=== PATIENT | female | born 1990 | race Hispanic/Latino ===

== ENCOUNTER 2016-12-29 12:14 | Inpatient (IN) | payer MEDICARE, MEDICAID ==
[~2016-12-29] VITALS: Ht 147.3 cm; Wt 55.6 kg
[~2016-12-29 12:14] MED LIST: CHOL200047 PO; HYDR-3090 PO; MYCO360T PO; PRD5T PO; PRETAB PO; TACR0.5C5 PO; TACR1CAP8 PO; Vancomycin Dose per Pharmacist XX ONE; [UNRECOGNIZED DRUG - CODE] PO
[2016-12-29 12:19] VITALS: BP 120/86; PULSE 109; RESP 20; O2SAT 98
[2016-12-29 14:52] LABS: BASOPHILS % (AUTO) 0 % (0-3); EOSINOPHILS % (AUTO) 0 % (0-5); Mean Corpuscular Hemoglobin 30.2 pg (27.0-35.0); Mean Corpuscular Volume 88.5 fL (81-100); NEUTROPHILS % (AUTO) 95.5 % (40-74); Platelet Count 191 bil/L (150-400)
--- NOTE | 2016-12-29 15:10 | ED.REPORT ---
HPI-General Illness Date of Service Dec 29, 2016 ED Provider: Pk Martinez DO Patient is a 26 year old female with a history of a kidney transplant who presents to the ED complaining of chills onset two days ago. Associated symptoms include diarrhea after the chills started, fever, diaphoresis, headache since yesterday, neck stiffness, decreased appetite and body aches. The patient reports that she has episodes of diarrhea after eating. She denies vomiting, abdominal pain, cough, hematochezia, mucousy stool or dysuria. Patient states that she has not missed any doses of her kidney medication. Nursing Notes Stated Complaint: CHILLS, SWEATING, HEADACHE, BODY HURTS Chief Complaint: General Complaint Nursing Notes Reviewed: Yes Allergies: Coded Allergies: No Known Allergies (Verified , 12/29/15) Scheduled Calcium Carbonate (Calcium Antacid) 320 Mg Tab.chew 500 MG PO BID Cholecalciferol (Vitamin D3) (Vitamin D3) 2,000 Unit Capsule 1,000 UNIT PO DAILY Mycophenolate DR (Myfortic) 360 Mg Tablet 360 MG PO BID Prednisone (PredniSONE) 5 Mg Tab 5 MG PO DAILY Tacrolimus (Tacrolimus) 1 Mg Capsule 1.5 MG PO QPM Tacrolimus (Tacrolimus) 1 Mg Capsule 2 MG PO DAILY Scheduled PRN Hydrocodone-Acetaminophen 5-300 mg (Hydrocodone-Acetaminophen 5-300 mg) 1 Each Tablet 1 TABLET PO Q4H PRN PRN For Pain Miscellaneous Medications Vits #90/Iron Fum/FA ( Formula Tablet) 1 Each Tablet 1 EACH PO General Time Seen by MD: 15:06 Chief Complaint Diarrhea Hx Obtained From: Patient Arrived By: Walk-in Sudden in Onset?: Yes Onset Occurred: 2 days ago Symptom Duration: Since onset Severity: Current: Moderate Associated with: Reports: Fever, Headache, Denies: Abdominal pain, Vomiting Recent Healthcare: No recent doctor visit, No recent hospitalization Similar Sx Previous: No Past Medical History Past Medical History 1. End-stage renal disease on hemodialysis until 2013, now in remission. 2. Hypertension resolved with kidney transplantation. 3. Secondary hyperparathyroidism status post surgical removal. 4. Anemia secondary to end-stage renal disease resolved with kidney transplantation. Past Surgical History 1. Left renal transplant 1995 and 2013. 2. Left AV fistula. 3. Parathyroidectomy. Family History Family history of diabetes mellitus. Smoking History Never Smoker Social History The patient is single, lives with her family, is currently working to become a full-time college student, and is not sexually active. She reports her menses are very irregular and unpredictable. Alcohol Use: Denies alcohol use Drug Use: Denies drug use Other Social History: Good social support, Lives with parents, Local resident, College student Ambulatory Status Independent Review of Systems Full Review of Systems Constitutional: Reports: Chills, Fever Respiratory: Denies: Non-productive cough GI: Reports: Diarrhea, Denies: Abdominal pain, Hematochezia, Mucousy stool, Vomiting Female: Denies: Dysuria Musculoskeletal: Reports: Myalgia, Neck pain Skin: Reports Diaphoresis Neurologic: Reports: Headache Complete sys rev & neg: except as marked. Physical Exam Vital Signs Vital Signs Date Time Temp Pulse Resp B/P Pulse Ox O2 Delivery O2 Flow Rate FiO2 12/29/16 15:59 39.2 119 22 128/70 99 Room Air 12/29/16 12:19 37.8 109 20 120/86 98 Room Air Initial VS: Reviewed General/Constitutional: Awake, Alert Distress / Hydration: Positive: Distress moderate warm to touch Head / Eyes: Atraumatic, Normocephalic, PERRL, EOMI Neck: Atraumatic, Supple, No meningismus, Full range of motion Respiratory / Chest: Atraumatic, Breath sounds NL, Breath sounds = bilat, No respiratory distress Cardiovascular: Regular rhythm, Heart sounds NL Heart Rate / Rhythm: Positive: Tachycardia Abdomen: Atraumatic, Soft Tenderness/Guarding/Rebound: Positive: Tender LLQ... (with guarding) Lower Extremity / Pelvis / MS: Atraumatic, Full range of motion, No edema Skin: Atraumatic, Color NL, No rash, Warm, Dry Neurologic: Oriented X3, Speech NL, No motor deficits, No sensory deficits Psychiatric: Affect NL, Mood NL Interpretation & Diagnostics Lab Results Interpretation Result Diagram: 12/29/16 1440 12/29/16 1440 Test 12/29/16 14:40 12/29/16 16:30 12/29/16 16:43 White Blood Count 18.1th/mm3 (3.8-10.1) Red Blood Count 4.96mil/mm3 (3.90-5.20) Hemoglobin 15.0g/dL (12.0-15.6) Hematocrit 43.9% (35.0-46.0) Mean Corpuscular Volume 88.5fL (81-100) Mean Corpuscular Hemoglobin 30.2pg (27.0-35.0) Mean Corpuscular Hemoglobin Concent 34.2% (32.0-37.0) Red Cell Distribution Width 13.6% (12.3-15.4) Platelet Count 191bil/L (150-400) Neutrophils (%) (Auto) 95.5% (40-74) Lymphocytes (%) (Auto) 2.2% (14-46) Monocytes (%) (Auto) 2.0% (4-12) Eosinophils (%) (Auto) 0% (0-5) Basophils (%) (Auto) 0% (0-3) Sodium Level 135mEq/L (134-144) Potassium Level 4.1mEq/L (3.5-5.2) Chloride Level 97mEq/L (97-108) Carbon Dioxide Level 18mmol/L (18-29) Blood Urea Nitrogen 21mg/dL (6-20) Creatinine 1.44mg/dL (0.57-1.00) Estimat Glomerular Filtration Rate 62mL/min (>59) Glucose Level 166mg/dL (60-99) Lactic Acid Level 1.9mmol/L (0.4-2.0) Calcium Level 9.1mg/dL (8.5-10.1) Magnesium Level 1.4mg/dL (1.6-2.6) Total Bilirubin 0.7mg/dL (0.0-1.2) Aspartate Amino Transf (AST/SGOT) 28U/L (0-50) Alanine Aminotransferase (ALT/SGPT) 43U/L (0-32) Alkaline Phosphatase 63U/L (25-150) Troponin T < 0.010ug/L (0.0-0.011) Total Protein 7.9g/dL (6.4-8.4) Albumin 4.7g/dL (3.4-5.0) Lipase 18U/L (13-60) Procalcitonin 1.91ng/mL (0.00-0.08) Hold Urine Received (Received) Urine Color Yellow (YELLOW) Urine Appearance Cloudy (CLEAR,HAZY) Urine pH 5.0 (5.0-8.0) Urine Specific [place] 1.025 (1.003-1.035) Urine Protein 100mg/dL (NEG,TRACE) Urine Glucose (UA) Negativemg/dL (NEGATIVE) Urine Ketones 15mg/dL (NEGATIVE) Urine Occult Blood Moderate (NEGATIVE) Urine Nitrite Positive (NEGATIVE) Urine Bilirubin Negative (NEGATIVE) Urine Urobilinogen Normalmg/dL (NORMAL) Urine Leukocyte Esterase Trace (NEGATIVE) Urine RBC 3-10/hpf (0-2) Urine WBC 6-10/hpf (0-5) Urine Epithelial Cells Moderate/hpf (NONE-MOD) Urine Crystals None seen (NONE SEEN) Urine Bacteria Many/hpf (NONE-FEW) Urine Hyaline Casts None/lpf (NONE) Urine Granular Casts None seen (NONE SEEN) Urine Waxy Casts None seen (NONE SEEN) Urine Red Blood Cell Casts None seen (NONE SEEN) Urine White Blood Cell Casts None seen (NONE SEEN) Urine Mucus None seen (None Seen) Urine Trichomonas None seen (NONE SEEN) Urine Yeast None (NONE SEEN) Urinalysis Comment None Urine Culture Reflexed Indicated ECG Interpretation ECG Interpretation: sinus tachycardia, rate 116 probably left atrial enlargement left ventricular hypertrophy Time: 15:45 Interpreted by: ED physician X-Ray Chest Interpretation Chest Xray Interpretation: IMPRESSION: No radiographic explanation for fevers. Dictated by: Paddy Yanes M.D. on 12/29/2016 at 16:34 Approved by: Paddy Yanes M.D. on 12/29/2016 at 16:34 View: Portable, 1 view Interpretation / Wet Read by: Interpret - Radiologist CT Head Interpretation IMPRESSION: No acute intracranial abnormalities. Dictated by: Paddy Yanes M.D. on 12/29/2016 at 17:25 Approved by: Paddy Yanes M.D. on 12/29/2016 at 17:27 Interpretation / Wet Read by: Interpret - Radiologist CT Abd / Pelvis Interpretation PELVIS: Genitourinary: Bladder wall thickness is normal. Uterus and ovaries are normal in size. Miscellaneous: No inguinal hernias or adenopathy. Bones: No suspicious bony lesions. No vertebral body compression fractures. IMPRESSION: Status post repeat left iliac fossa renal transplant, with mild perinephric inflammatory fat stranding possibly reflecting pyelonephritis. No hydronephrosis. Dictated by: Paddy Yanes M.D. on 12/29/2016 at 17:27 Approved by: Paddy Yanes M.D. on 12/29/2016 at 17:33 Interpretation / Wet Read by: Interpret - Radiologist Re-Eval/Medical Decision Med Decision/Clinical Course Sepsis likely due to pyelonephritis versus transplant rejection, versus other etiology. Broad-spectrum antibiotics initiated due to immunocompromise. Does complain of headache, this is not consistent with subarachnoid hemorrhage or meningitis however a head CT was performed while waiting for further results. Seems that her kidney is the source. Patient be admitted. Nephrology consulted. Source of Hx: Old records Time of Eval: 15:58 Re-Evaluation/Progress Note: Patient reports that her headache comes and goes. It is not the worst headache ever. Time of Eval: 17:35 Re-Evaluation/Progress Note: Discussed results and plan for admit. The patient understands and agrees to the plan for admit. All questions were addressed. Consultation #1: Referral / Consult Name: Barb Amanda MD Consulted With: Nephrology Call Returned at: 17:16 Note: Dr. Alberto, nephrology, recommends renal US Consultation #2: Referral / Consult Name: Johny Logan MD Call Returned at: 17:32 Machine Compositor: Agrees with eval, Agrees with plan, Accepts admit Counseled Regarding: Diagnosis, Lab results, Need for admission Discharge & Departure Primary Impression: Sepsis Sepsis type: sepsis due to unspecified organism Qualified Code: A41.9 - Sepsis, unspecified organism Additional Impressions: Diarrhea Diarrhea type: unspecified type Qualified Code: R19.7 - Diarrhea, unspecified Abdominal pain Abdominal location: lower abdomen, unspecified Qualified Code: R10.30 - Lower abdominal pain, unspecified Pyelonephritis Disposition: ADMITTED TO HOSPITAL Discharge Condition All VS Reviewed: Yes Condition: Stable Referrals: Delano Machuca MD (PCP) Crit Care Except Billable Proc Time Spent: 30-74 minutes Services Performed: Patient management by me, Time spent at bedside, Reviewing test results Critical Care Notes: See MDM Scribe Attestation Portions of this note were transcribed by Chantal Huffman. I, Dr. Gia Becker personally performed the history, physical exam and medical decision-making; I reviewed and confirmed the accuracy of the information in the transcribed note. Signed by: Cyndie Bentley, 12/29/16 and [phone] copies to: Delano Machuca MD, Timothy S DO Dec 29, 2016 15:09 Dolly Huffman Dec 29, 2016 15:24
[2016-12-29 15:13] LABS: Magnesium 1.4 mg/dL (1.6-2.6)
[2016-12-29] MEDS ORDERED: 0.9% Sodium Chloride 1,000 ML IV ONE (15:34)
[2016-12-29] MEDS: 0.9% Sodium Chloride 1,000 ML IV SCH ×2 (15:35→21:54)
[2016-12-29] MEDS ORDERED: 0.9% Sodium Chloride 500 ML IV ONE (15:35)
[2016-12-29 15:59] VITALS: BP 128/70; PULSE 119; RESP 22; O2SAT 99
[2016-12-29 16:14] LABS: TROPONIN T < 0.010 ug/L (0.0-0.011)
[2016-12-29] MEDS ORDERED: Magnesium Sulf 2 Gm/50mL Water 2 GM in IV Premix 1 EACH IV ONE (16:15)
[2016-12-29] MEDS ORDERED: Cefepime Inj 2 GM in IV Premix 1 EACH IV ONE (16:30)
--- NOTE | 2016-12-29 16:36 | DRSVH ---
PROCEDURE: X-RAY CHEST ONE VIEW, PORTABLE ([id number]) INDICATIONS: 26-year-old immunocompromised female with fevers. TECHNIQUE: One view of the chest was acquired. COMPARISON: [facility], , CHEST 1VW (PORTABLE), 10/27/2013, 4:18. [facility], CR, CHEST 2VW, 07/17/2012, 21:20. [facility], , CHEST 2VW, 11/08/2011, 3:45. FINDINGS: Surgical changes and devices: None. Lungs and pleura: No pleural effusions or pneumothorax. Lungs are clear. Mediastinum: Mediastinal contours appear normal. Heart size is normal. Bones and chest wall: No suspicious bony lesions. Overlying soft tissues appear unremarkable. IMPRESSION: No radiographic explanation for fevers. Dictated by: Paddy Yanes M.D. on 12/29/2016 at 16:34 Approved by: Paddy Yanes M.D. on 12/29/2016 at 16:34
[2016-12-29] MEDS ORDERED: MYCO360T PO (17:00)
[2016-12-29 17:02] LABS: COLOR,URINE YELLOW (YELLOW)
[2016-12-29 17:03] LABS: APPEARANCE,URINE CLOUDY (CLEAR,HAZY); OCCULT BLOOD,URINE MODERATE (NEGATIVE); UROBILINOGEN,URINE NORMAL (NORMAL)
[2016-12-29] MEDS ORDERED: TACR1CAP8 PO ×2 (17:04)
[2016-12-29] MEDS ORDERED: PREN-100 PO (17:05)
[2016-12-29] MEDS ORDERED: Vancomycin Inj 1,000 MG in IV Premix 1 EACH IV ONE (17:15)
--- NOTE | 2016-12-29 17:28 | DRSVH ---
PROCEDURE: CT BRAIN WITHOUT CONTRAST ([id number]) INDICATIONS: 26-year-old immunocompromised female with headaches. TECHNIQUE: Noncontrast 4.5 mm thick angled axial sections acquired from the foramen magnum to the vertex, with c oronal reformats. COMPARISON: [facility], CT, BRAIN W/O CONTRAST, 11/09/2011, 8:54. FINDINGS: Image quality: Excellent. CSF spaces: Basal cisterns are patent. No extra-axial fluid collections. Ventricles are normal in size and shape. Brain: No midline shift. No intracranial masses or hemorrhage. Agustin-white matter interface is norm al. Skull and face: Calvarium and visualized facial bones are intact, without suspicious lesions. Sinuses: Visualized sinuses and mastoids are clear. IMPRESSION: No acute intracranial abnormalities. Dictated by: Paddy Yanes M.D. on 12/29/2016 at 17:25 Approved by: Paddy Yanes M.D. on 12/29/2016 at 17:27
[2016-12-29] MEDS ORDERED: Ondansetron 2 mg/mL 2 mL Inj IVPUSH PRN (17:35)
[2016-12-29] MEDS ORDERED: Alum-Mag Hydrox-Simeth 30 mL Suspension PO PRN (17:35)
--- NOTE | 2016-12-29 17:35 | DRSVH ---
PROCEDURE: CT ABDOMEN AND PELVIS WITHOUT CONTRAST ([id number]) INDICATIONS: 26-year-old immunocompromised female with left lower quadrant abdominal pain. TECHNIQUE: Noncontrast 5 mm thick sections acquired from the diaphragms to the symphysis. 5 mm coronal and sagi ttal reformats were then performed. For radiation dose reduction, the following was used: automated exposure control, adjustment of mA and/or kV according to patient size. COMPARISON: [facility], CT, KUB - CT ([facility]), 05/26/2011, 1:37. FINDINGS: Image quality: Excellent. ABDOMEN: Lung bases: Lung bases are clear. Heart size is normal. Solid organs: Liver and spleen are normal in size. Gallbladder wall thickness is normal. Pancreas is normal in contours. No adrenal nodules. Atrophic [place] kidneys are again noted. Patient is statu s post interval repeat renal transplant, with normal overall size and morphology to the left iliac fo ssa transplanted kidney. There is mild perinephric inflammatory fat stranding. Previously noted right iliac fossa renal transplant has decreased in size, with extensive internal dystrophic calcification s. Peritoneum and bowel: Unenhanced bowel loops demonstrate normal wall thickness and caliber. The tyesha endix is normal in caliber. No free fluid or air. Nodes and vessels: No retroperitoneal or mesenteric adenopathy by size criteria. Aorta and inferior vena cava are normal in caliber. Miscellaneous: No ventral hernias. PELVIS: Genitourinary: Bladder wall thickness is normal. Uterus and ovaries are normal in size. Miscellaneous: No inguinal hernias or adenopathy. Bones: No suspicious bony lesions. No vertebral body compression fractures. IMPRESSION: Status post repeat left iliac fossa renal transplant, with mild perinephric inflammatory fat stranding possibly reflecting pyelonephritis. No hydronephrosis. Dictated by: Paddy Yanes M.D. on 12/29/2016 at 17:27 Approved by: Paddy Yanes M.D. on 12/29/2016 at 17:33
[2016-12-29] MEDS ORDERED: HYDROCODONE ACETAMINOPHEN PO PRN (17:40)
--- NOTE | 2016-12-29 17:55 | DRSVH ---
PROCEDURE: US RENAL TRANSPLANT EVALUATION INDICATIONS: 26 year-old renal transplant patient with sepsis. TECHNIQUE: Real time scanning was performed of the transplant kidney, followed by color and pulsed D oppler interrogation of the renal vessels. COMPARISON: [facility], , RENAL TRANSPLANT EVAL, 04/20/2016, 22:24. FINDINGS: Agustin-scale imaging: Kidney is 10.6 cm long; renal cortical thickness is 1.5 cm. No hydronephrosis. Renal cortex is normal in echogenicity. No perinephric fluid collections. Bladder: Pre-void bladder volume is 277 mL; left ureteral jet is noted. IMPRESSION: Left iliac fossa transplanted kidney demonstrates no hydronephrosis or perinephric fluid collections. Dictated by: Paddy Yanes M.D. on 12/29/2016 at 17:50 Approved by: Paddy Yanes M.D. on 12/29/2016 at 17:54
--- NOTE | 2016-12-29 18:22 | NUR ---
Admit [facility] Pt arrived at 182 accompanied by mom with all belongings, telemetry to be put on, SL but IV fluids and ABX to be hung, on RA, is A&Ox3, and is SBA to BR. Pt has ordered dinner. Care continues
[2016-12-29] MEDS: D5 0.45% NaCl + KCl 20 mEq/L 1,000 ML IV SCH (18:28)
[2016-12-29 18:41] VITALS: PULSE 95
--- NOTE | 2016-12-29 18:42 | PCM.CONPHA ---
Assessment/Plan Assessment/Plan Pharmacy Kinetic Dosing Vancomycin Indication: SEPSIS Vanc goal trough: 15-20 mcg/mL Pt wt: 53.6 kg Other ABX: CEFEPIME Cultures: Blood PENDING SCr: 1.44 mg/dL Assessment/Plan: - Loading dose of Vancomycin 1000 mg given in ED for (20 mg/kg dosing) -Will continue Vancomycin 1000 mg Q24H due to patients renal function with trough scheduled prior to 4th dose on December @1800 Pharmacy appreciates consult and will continue to monitor. Steph Polo PharmD Dec 29, 2016 18:42
[2016-12-29 19:23] VITALS: BP 105/72; PULSE 100; RESP 16; O2SAT 100
[2016-12-29] MEDS: HYDROcodone-APAP 5-325 mg Tablet PO PRN (19:52)
--- NOTE | 2016-12-29 19:53 | PCM.HPMED ---
Subjective Date of Service Dec 29, 2016 Primary Provider: Admitting Physician: Johny Logan MD Primary Care Physician: Delano Machuca MD Attending Physician: Johny Logan MD Chief Complaint: CHILLS, SWEATING, HEADACHE, BODY HURTS Review of Systems: Gen.: No weight loss weight gain fevers and chills for the last 24-36 hours Eyes: no visual disturbances or blurring vision HEENT: No nose/throat drainage, no pain in ears or throat, no hearing loss Lymph: No lymph nodes noted Cardiac: No chest pain, orthopnea, PND, palpitations , pedal edema or dyspnea on exertion Pulmonary: no cough, wheezing or bringing up of sputum GI: No vomiting blood or black in the stool. ++ Nausea, decreased appetite, diarrhea : no dysuria hematuria urinary frequency or decrease in urine output Musculoskeletal: Joint swelling no joint pain no new muscle aches or back pain Neuro: No syncope, seizures no loss of consciousness no new focal weakness, numbness or tingling Psychiatric: New new anxiety insomnia or depression Endocrine: No new heat or cold intolerances polyuria or polydipsia Hematology: No lymphadenopathy or easy bleeding or bruising noted skin: No new rashes, stasis dermatitis Allergies Coded Allergies: No Known Allergies (Verified , 12/29/15) Home Medications Calcium Carbonate (Calcium Antacid) 320 Mg Tab.chew 500 MG PO BID Cholecalciferol (Vitamin D3) (Vitamin D3) 2,000 Unit Capsule 1,000 UNIT PO DAILY Mycophenolate DR (Myfortic) 360 Mg Tablet 360 MG PO BID Prednisone (PredniSONE) 5 Mg Tab 5 MG PO DAILY Tacrolimus (Tacrolimus) 1 Mg Capsule 1.5 MG PO QPM Tacrolimus (Tacrolimus) 1 Mg Capsule 2 MG PO DAILY Scheduled PRN Hydrocodone-Acetaminophen 5-300 mg (Hydrocodone-Acetaminophen 5-300 mg) 1 Each Tablet 1 TABLET PO Q4H PRN PRN For Pain Miscellaneous Medications Vits #90/Iron Fum/FA ( Formula Tablet) 1 Each Tablet 1 EACH PO PMH Past Medical History 1. End-stage renal disease on hemodialysis until 2013, now in remission. 2. Hypertension resolved with kidney transplantation. 3. Secondary hyperparathyroidism status post surgical removal. 4. Anemia secondary to end-stage renal disease resolved with kidney transplantation. Past Surgical History 1. Left renal transplant 1995 and 2013. 2. Left AV fistula. 3. Parathyroidectomy. Family History Family history of diabetes mellitus. Smoking History Never Smoker Social History The patient is single, lives with her family, is currently working to become a full-time college student, and is not sexually active. She reports her menses are very irregular and unpredictable. Alcohol Use: Denies alcohol use Drug Use: Denies drug use Other Social History: Good social support, Lives with parents, Local resident, College student Ambulatory Status Independent Social History Hx Alcohol Use: No Hx Substance Use: No Hx Tobacco Use: No Smoking Status: Never Smoker Exam Vital Signs Vital Sign - Last Date Time Temp Pulse Resp B/P Pulse Ox O2 Delivery O2 Flow Rate FiO2 12/29/16 19:23 36.9 100 16 105/72 100 Room Air Exam Gen.- A+ O 3 no apparent distress. Bundle block under blankets Eyes- open conjunctiva clear, pupils equal nonicteric Mouth- oral mucosa moist, no exudate ENT- ears normal, nose normal Neck- trach midline, neck is a little stiff CVS- RRR no murmur or gallop Lungs CTA GI- NABS/NT soft Musc- moving 4 no obvious deformity Neuro- cranial nerves II through XII intact to gross examination, nonfocal Skin- warm and dry, no rashes/lesions/wounds noted Psych- pleasant and appropriate, Lab and Diagnostics Result Diagram: 12/29/16 1440 12/29/16 1440 Assessment & Plan 26-year-old female on second renal transplant, immunosuppressed presents 12/29 with fevers and chills and diarrhea with decreased appetite. #Fevers/chills- symptomatic treatment with Tylenol, no source -Treating with broad-spectrum antibiotics cefepime/vancomycin given immunosuppressed state #Stiff neck- slight concern for meningitis, however global appearance does not suggest this. -If ongoing concern for aseptic meningitis may be we will send viral PCR #Diarrhea-not pursuing stool PCR at this time. #Dehydration-normal saline under 50 ML's per hour follow-up labs in a.m. #Immunosuppressed s/p kidney transplant -Continue mycophenolate, tacrolimus, prednisone -Dr. Alberto nephrology to consult in a.m. -Imaging including ultrasound thus far reassuring only minor concern for rejection is some protein in the urine deferred to nephrology as far as management goes #Prophylaxis- DVT with SCDs, enoxaparin, GI not indicated #Disposition- full code from ringold Johny Logan MD Dec 29, 2016 19:53
[2016-12-29] MEDS: [UNRECOGNIZED DRUG - OTHER] PO SCH (20:36)
[2016-12-29] MEDS: MYCOPHENOLATE SODIUM PO SCH (20:36)
[2016-12-29 21:50] VITALS: BP 113/65; PULSE 106; RESP 18; O2SAT 97
[2016-12-29] MEDS: Polyethylene Glycol (PEG) 17 Gm Powder PO PRN (21:54)
--- NOTE | 2016-12-29 23:51 | NUR ---
Home medications in pharmacy Patient had three bottles of medications brought to pharmacy for safe keeping, and one to be used while in hospital. Patient cooperative with protocol.
[2016-12-30 01:06] VITALS: BP 93/53; PULSE 104; RESP 18; O2SAT 97
[2016-12-30] MEDS: HYDROcodone-APAP 5-325 mg Tablet PO PRN ×4 (01:23→20:13)
[2016-12-30] MEDS: D5 0.45% NaCl + KCl 20 mEq/L 1,000 ML IV SCH (04:29)
[2016-12-30] MEDS: 0.9% Sodium Chloride 1,000 ML IV SCH ×3 (04:30→18:00)
--- NOTE | 2016-12-30 04:45 | NUR ---
NOC shift note Patient has slept intermittently, able to make needs known. Has had more complaints through the night of feeling congested and having sore throat, runny nose. Pain medication given, offered ice or warm liquids for throat. Mclean effective for headache. Temperatures have been 37.6 and 37.7. Antibiotics infusing as ordered. Patient is using call light appropriately for needs, intentional rounding in place.
[2016-12-30 04:57] VITALS: PULSE 97
[2016-12-30] MEDS: Cefepime Inj 1,000 MG in Dextrose 5% Minibag Plus 50 ML IV SCH ×2 (05:42→17:34)
[2016-12-30 06:05] LABS: BASOPHILS % (AUTO) 0.1 % (0-3); EOSINOPHILS % (AUTO) 0.3 % (0-5); Mean Corpuscular Hemoglobin 30.1 pg (27.0-35.0); Mean Corpuscular Volume 89.8 fL (81-100); NEUTROPHILS % (AUTO) 83.2 % (40-74); Platelet Count 147 bil/L (150-400)
[2016-12-30 06:11] VITALS: BP 106/71; PULSE 102; RESP 18; O2SAT 99
[2016-12-30 08:00] VITALS: PULSE 107
[2016-12-30] MEDS: predniSONE 5 mg Tablet PO SCH (08:10)
[2016-12-30] MEDS: MYCOPHENOLATE SODIUM PO SCH ×2 (08:10→20:04)
[2016-12-30] MEDS: [UNRECOGNIZED DRUG - OTHER] PO SCH ×2 (08:10→20:04)
[2016-12-30] MEDS ORDERED: Vancomycin Dose per Pharmacist XX SCH (08:30)
[2016-12-30] MEDS ORDERED: Famotidine Inj 20 MG in IV Premix 1 EACH IV SCH (08:30)
[2016-12-30] MEDS: Polyethylene Glycol (PEG) 17 Gm Powder PO PRN (10:00)
[2016-12-30 12:45] VITALS: BP 109/65; PULSE 102; RESP 20; O2SAT 95
[2016-12-30] MEDS ORDERED: Benzocaine-Menthol Lozenge 2/Pkg PO PRN (12:50)
--- NOTE | 2016-12-30 12:53 | PCM.PNMED ---
Subjective Date of Service Dec 30, 2016 Subjective Still having headache, sinus congestion. No chest pain, no dyspnea, no nausea vomiting, no more diarrhea reported. Exam Vital Signs Vital Sign - Last Date Time Temp Pulse Resp B/P Pulse Ox O2 Delivery O2 Flow Rate FiO2 12/30/16 12:45 37.5 102 20 109/65 95 Room Air Intake and Output 12/29/16 12/29/16 12/30/16 Cumulative From/Thru 15:00 23:00 07:00 12/29/16 12:19 - 12/30/16 05:42 Intake Total 1500 ml 1140 ml 2640 ml Output Total 425 ml 425 ml Balance 1075 ml 1140 ml 2215 ml Intake Oral 0 ml 0 ml IV Total 1500 ml 1140 ml 2640 ml Output Urine Total 425 ml 425 ml # Bowel Movements 0 0 Exam Gen.- A+ O 3 no apparent distress. Bundle block under blankets Eyes- open conjunctiva clear, pupils equal nonicteric ENT- ears normal, nose normal Neck- trach midline, neck is a little stiff CVS-normal rate Lungs no accessory muscle usage nonlabored GI-flat Musc- moving 4 no obvious deformity Neuro- cranial nerves II through XII intact to gross examination, nonfocal Skin- warm and dry, no rashes/lesions/wounds noted Psych- pleasant and appropriate, Lab and Diagnostics Result Diagram: 12/30/16 0540 12/30/16 0540 Assessment & Plan 26-year-old female on second renal transplant, immunosuppressed presents 12/29 with fevers and chills and diarrhea with decreased appetite. 12/30 vancomycin discontinued, renal function better but will continue to hydrate, continuing cefepime until cultures and sensitivities back on Escherichia coli that is growing in urine. #Fevers/chills- symptomatic treatment with Tylenol, no source -Treating with broad-spectrum antibiotics cefepime/vancomycin given immunosuppressed state. MRSA negative, UA positive culture despite dirty catch treating with cefepime until C&S is back 12/30 #Stiff neck- slight concern for meningitis, however global appearance does not suggest this. Improved 12/30. -If ongoing concern for aseptic meningitis may be we will send viral PCR #Diarrhea-not pursuing stool PCR at this time. No more 12/30 #Dehydration-normal saline 150 ML's per hour follow-up labs in a.m.. Continue IV feet F6/2 #Immunosuppressed s/p kidney transplant -Continue mycophenolate, tacrolimus, prednisone -Dr. Alberto nephrology to consult in a.m. -Imaging including ultrasound thus far reassuring only minor concern for rejection is some protein in the urine deferred to nephrology as far as management goes #Prophylaxis- DVT with SCDs, enoxaparin, GI not indicated #Disposition- full code from home Johny Logan MD Dec 30, 2016 12:53
--- NOTE | 2016-12-30 14:05 | PCM.CHPMED ---
Subjective Date of Service: Dec 30, 2016 Primary Physician: Admitting Physician: Johny Logan MD Primary Care Physician: Delano Machuca MD Attending Physician: Johny Logan MD Chief Complaint: Chief Complaint: Nephrology Service [facility] PGY2 and attending Dr. Alberto Reason for consult: Acute renal injury in renal transplant patient History of Present Illness: Patient is a 26yof with MHx significant for solitary kidney on immunosuppressive medication who initially presented with fevers and chills, admitted yesterday night for sepsis, pyelonephritis, and RACHANA. Nephrology service consulted for management of acute kidney injury. Per patient, sx of malaise, aches, and diarrhea started 2days ago. Fever began yesterday along with a sore throat. No dysuria, back pain, or suprapubic discomfort. She does admits to shaking chills and came into the ED for further assessment. Patient was tachycardic, feverish, leukocytosis on evaluation. UA positive for WBC, bacteria, nitrite consistent with UTI. CT scan showed "mild perinephric inflammatory fat stranding" suggestive of pyelonephritis. Creatinine 1.44. She was thus given boluses fluids and empiric abx cefepime and vancomycin. Today, patient still feverish and continues to have mild b/l frontal headaches, however feels significantly better. Patient state taking mycophenolate DR, tacrolimus, and prednisone 5mg daily. She has a renal transplant at 5yrs 2nd to "severe renal infection" that eventually failed, placed on hemodialysis for a period before receiving another transplant in 2013. Review of Systems: Review of Systems: A comprehensive review of systems was conducted with the patient and found to be negative except as above in the History of Present Illness. PMH Past Medical History Solitary kidney Hx ESRD s/p transplants Surgical History Left renal transplant 1995 and 2013. Left AV fistula. Parathyroidectomy. Home Medications Calcium Carbonate (Calcium Antacid) 320 Mg Tab.chew 500 MG PO BID Cholecalciferol (Vitamin D3) (Vitamin D3) 2,000 Unit Capsule 1,000 UNIT PO DAILY Mycophenolate DR (Myfortic) 360 Mg Tablet 360 MG PO BID Prednisone (PredniSONE) 5 Mg Tab 5 MG PO DAILY Tacrolimus (Tacrolimus) 1 Mg Capsule 1.5 MG PO QPM Tacrolimus (Tacrolimus) 1 Mg Capsule 2 MG PO DAILY Allergies: Coded Allergies: No Known Allergies (Verified , 5/31/16) Family History Family History Family history of diabetes mellitus. 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 Hx Alcohol Use: NoHx Substance Use: NoHx Tobacco Use: No Smoking Status: Never Smoker Exam Vital Signs Vital Sign - Last Date Time Temp Pulse Resp B/P Pulse Ox O2 Delivery O2 Flow Rate FiO2 12/30/16 12:45 37.5 102 20 109/65 95 Room Air Intake and Output 12/29/16 12/29/16 12/30/16 Cumulative From/Thru 15:00 23:00 07:00 12/29/16 12:19 - 12/30/16 05:42 Intake Total 1500 ml 1140 ml 2640 ml Output Total 425 ml 425 ml Balance 1075 ml 1140 ml 2215 ml Intake Oral 0 ml 0 ml IV Total 1500 ml 1140 ml 2640 ml Output Urine Total 425 ml 425 ml # Bowel Movements 0 0 General: Alert, Oriented X3, Cooperative, No Acute Distress Head: Normal Eyes: PERRLA, EOMI, Scleral Anicteric Mouth: Mucous Membr Moist/[place] Neck: Supple Chest & Lungs: Clear to auscultation & percussion, Auscultation, Percussion, No adventitious breath sounds Cardiovascular: Exam Unremarkable, Regular Rate/Rhythm, Normal S1, Normal S2, No Murmurs/Rubs/Gallops Abdomen: Non-tender, Non-distended, Other (no rebound tenderness) Genitourinary: Normal, [place] Absent, Other (no costophrenic angle tenderness or suprapubic pain) Extremities: No cyanosis/clubbing/edma bilat Neurological: Grossly Neurologically Intact, Cranial Nerves 2-12 Intact, Normal Speech Lab and Diagnostics Result Diagram: 12/30/16 0540 12/30/16 0540 X-Rays, CTs and MRIs PROCEDURE: CT ABDOMEN AND PELVIS WITHOUT CONTRAST INDICATIONS: 26-year-old immunocompromised female with left lower quadrant abdominal pain. IMPRESSION: Status post repeat left iliac fossa renal transplant, with mild perinephric inflammatory fat stranding possibly reflecting pyelonephritis. No hydronephrosis. Dictated by: Paddy Yanes M.D. on 12/29/2016 at 17:27 Approved by: Paddy Yanes M.D. on 12/29/2016 at 17:33 Assessment & Plan Assessment Patient is a 26yof with MHx significant for s/p kidney transplant x2, on immunosuppressive admitted for sepsis and pyelonephritis. Patient improved with fluids and antibiotics. Creatinine 1.13, trend down. Preliminary urine culture grew gram negative rods, screen MRSA negative. Problem List #RACHANA in the setting of kidney transplant. #Sepsis secondary to acute pyelonephritis. #Kidney transplant status. PLAN #Start NS 150cc/hr. D/c D5 1/2NS+KCL. #Cont IV Cefepime, d/c vancomycin since there is no evidence of gram positive bacteria infection. #Ordered Tacrolimus trough, target range 4-6. #Continue only prograf and prednisone for now, hold myfortic since she is septic. Will resume the medication, once she becomes afebrile. Patient was seen and examined. Case discussed with resident. Agreed as above. Thank you for the consultation. We will monitor along with you. Bridger Alberto MD Pg [phone]. Problems: Sarwat Mix DO Dec 30, 2016 14:05 Barb Amanda MD Dec 30, 2016 15:12
--- NOTE | 2016-12-30 14:31 | NUR ---
Social Work: Initial Assessment / Readiness for d/c Data: Pt is a 26 y/o female admitted for Medicare with [facility] supp. EMR reviewed. Pt discussed in rounds, MD states pt likely to be ready for d/c tomorrow. Readmit score is 2, low. NUCLEAR CONTROL OPERATOR met with pt at bedside, role explained. Pt states that she lives with her mom in [place] in a two story home where she uses no DME. Pt states she drives, has no hx of HH or SNF, no LTC or VA benefits, and is not a caregiver. No d/c planning needs identified at this time. NUCLEAR CONTROL OPERATOR will continue to follow if needs arise. Assessment: Pt who is independent at baseline. Plan: Pt will d/c home via POV with mother when medically stable. No d/c planning needs identified at this time. NUCLEAR CONTROL OPERATOR will continue to follow if needs arise. FEDERICO Doty Addendum: 12/30/16 at 1433 by SHANKAR REAGAN Amended: Links added.
[2016-12-30] MEDS: Fluticasone 0.05% 15 Spray/2 Gm 16 Gm Nasal Spray NASAL SCH ×2 (14:59→15:02)
[2016-12-30] MEDS ORDERED: Vancomycin Inj 1,000 MG in IV Premix 1 EACH IV SCH (18:30)
[2016-12-30 20:07] VITALS: BP 125/90; PULSE 94; RESP 16; O2SAT 100
[2016-12-31] MEDS: 0.9% Sodium Chloride 1,000 ML IV SCH ×2 (00:17→06:43)
[2016-12-31] MEDS: HYDROcodone-APAP 5-325 mg Tablet PO PRN (00:22)
[2016-12-31 05:07] VITALS: BP 107/68; PULSE 92; RESP 18; O2SAT 97
[2016-12-31] MEDS: Cefepime Inj 1,000 MG in Dextrose 5% Minibag Plus 50 ML IV SCH (05:38)
--- NOTE | 2016-12-31 06:32 | NUR ---
Pain Pt reporting neck pain /10 and headache pain / this shift, medicated pt with 2 tabs [place] for pain control. Pt then reporting having chills, pt afebrile, warm blankets offered to pt. No further reports of chills, pt remains afebrile. Pt sleeping intermittently this shift, using bathroom independently. Steady on feet. Call light within reach, frequent rounding.
[2016-12-31] MEDS: predniSONE 5 mg Tablet PO SCH (08:01)
[2016-12-31] MEDS: MYCOPHENOLATE SODIUM PO SCH (08:01)
[2016-12-31] MEDS: [UNRECOGNIZED DRUG - OTHER] PO SCH (08:01)
[2016-12-31 09:54] LABS: Magnesium 1.5 mg/dL (1.6-2.6)
[2016-12-31] MEDS ORDERED: Non-Formulary ORAL Med PO SCH (11:20)
[2016-12-31] MEDS ORDERED: Magnesium Sulf 4 Gm/100 mL H2O 4 GM in IV Premix 1 EACH IV ONE ×2 (11:20→12:45)
--- NOTE | 2016-12-31 12:59 | PCM.DIMED ---
Discharge Instructions Date of Service Dec 31, 2016 Dates of Hospitalization Dec 29, 2016 at 18:01 Discharge Diagnosis Discharge Diagnosis Urinary tract infection Diet Discharge Diet: No restrictions Activity Discharge Activity: No restrictions Call your provider Call your provider for: Fever or Chills, Excessive diarrhea Patient Instructions Patient Instructions Finish 10 days of cephalexin/Keflex see your primary union steward next week. Follow-up Provider: Delano Machuca MD Follow-up with PCP in: Other (before 01/06) Johny Logan MD Dec 31, 2016 12:59
[2016-12-31] MEDS ORDERED: CEPH500C PO (13:01)
--- NOTE | 2016-12-31 13:09 | PCM.DC.MED ---
Discharge Summary Date of Service Dec 31, 2016 Dates of Hospitalization Date of Hospital Admission Dec 29, 2016 at 18:01 Date of Discharge: Dec 31, 2016 Providers: Admitting Physician: Feliz Logan MD Primary Care Physician: Delano Machuca MD Attending Physician: Feliz Logan MD Diagnosis at Time of Discharge Diagnosis at Time of Discharge Urinary tract infection Consultations Nephrology thank you Dr. Alberto Procedures XRay, CTs & MRIs US RENAL TRANSPLANT EVALUATION: Paddy Yanes M.D. on 12/29/2016 at 17:50 IMPRESSION: Left iliac fossa transplanted kidney demonstrates no hydronephrosis or perinephric fluid collections. Dictated by: Paddy Yanes M.D. on 12/29/2016 at 17:50 CT ABDOMEN AND PELVIS WITHOUT CONTRAST: Paddy Yanes M.D. on 12/29/2016 at 17: 27 IMPRESSION: Status post repeat left iliac fossa renal transplant, with mild perinephric inflammatory fat stranding possibly reflecting pyelonephritis. No hydronephrosis. Dictated by: Paddy Yanes M.D. on 12/29/2016 at 17:27 CT BRAIN WITHOUT CONTRAST: Paddy Yanes M.D. on 12/29/2016 at 17:25 IMPRESSION: No acute intracranial abnormalities. Dictated by: Paddy Yanes M.D. on 12/29/2016 at 17:25 X-RAY CHEST ONE VIEW, PORTABLE: Paddy Yanes M.D. on 12/29/2016 at 16:34 IMPRESSION: No radiographic explanation for fevers. Dictated by: Paddy Yanes M.D. on 12/29/2016 at 16:34 ECG 12 Lead EKG reviewed by Doreen on discharge from 12/29 rate 116, QTC 421 ms . Sinus tachycardia * Possible left atrial enlargement * Cannot exclude left ventricular hypertrophy . No previous ECG available for comparison Brief History Patient is a 26yof with MHx significant for solitary kidney on immunosuppressive medication who initially presented with fevers and chills, admitted yesterday night for sepsis, pyelonephritis, and RACHANA. Nephrology service consulted for management of acute kidney injury. Per patient, sx of malaise, aches, and diarrhea started 2days ago. Fever began yesterday along with a sore throat. No dysuria, back pain, or suprapubic discomfort. She does admits to shaking chills and came into the ED for further assessment. Patient was tachycardic, feverish, leukocytosis on evaluation. UA positive for WBC, bacteria, nitrite consistent with UTI. CT scan showed "mild perinephric inflammatory fat stranding" suggestive of pyelonephritis. Creatinine 1.44. She was thus given boluses fluids and empiric abx cefepime and vancomycin. Today, patient still feverish and continues to have mild b/l frontal headaches, however feels significantly better. Patient state taking mycophenolate DR, tacrolimus, and prednisone 5mg daily. She has a renal transplant at 5yrs 2nd to "severe renal infection" that eventually failed, placed on hemodialysis for a period before receiving another transplant in 2013. Hospital Course 26-year-old female on second renal transplant, immunosuppressed presents 12/29 with fevers and chills and diarrhea with decreased appetite. 12/30 vancomycin discontinued, renal function better but will continue to hydrate, continuing cefepime until cultures and sensitivities back on Kleibsiella growing in urine. 12/31 all patient's symptoms is dissipated she is being frequently her renal function has recovered and sensitivities are back on urine Klebsiella we will treat with Keflex 500 mg 4 times a day for next 10 days. She should follow-up with her primary care/vocational ed instructor within the next week. Tacrolimus levels are still pending. Discussed with on-call vocational ed instructor Dr Alberto who is in agreement with discharge plan. #Hypomagnesemia replacing 4 g 12/31 prior to discharge, was 1.4 12/29 -replaced 4g. 1.5 replace 4g IV 12/31 #Fevers/chills- symptomatic treatment with Tylenol, we decided UTI -Treating with broad-spectrum antibiotics cefepime/vancomycin given immunosuppressed state. MRSA negative, UA positive culture despite dirty catch treating with cefepime until C&S is back 12/30, back pansensitive Klebsiella cephalexin for 10 more days #Stiff neck- slight concern for meningitis, however global appearance does not suggest this. Improved 12/30, results 12/31 -If ongoing concern for aseptic meningitis may be we will send viral PCR #Diarrhea-not pursuing stool PCR at this time. No more 12/30 #Dehydration-normal saline 150 ML's per hour follow-up labs in a.m.. Continue IVF 12/30 #Immunosuppressed s/p kidney transplant -Continue mycophenolate, tacrolimus, prednisone -Dr. Alberto nephrology to consult in a.m. -Imaging including ultrasound thus far reassuring only minor concern for rejection is some protein in the urine deferred to nephrology as far as management goes #Prophylaxis- DVT with SCDs, enoxaparin, GI not indicated #Disposition- full code from home Exam Vital Signs (Last) Date Time Temp Pulse Resp B/P Pulse Ox O2 Delivery O2 Flow Rate FiO2 12/31/16 05:07 37.0 92 18 107/68 97 Room Air Exam Gen.- A+ O 3 no apparent distress. Up and walking Eyes- open conjunctiva clear, pupils equal nonicteric ENT- ears normal, nose normal Neck- trach midline, neck is a little stiff CVS-normal rate Lungs no accessory muscle usage nonlabored GI-flat Musc- moving 4 no obvious deformity Neuro- cranial nerves II through XII intact to gross examination, nonfocal Skin- warm and dry, no rashes/lesions/wounds noted Psych- pleasant and appropriate, Test 12/29/16 14:40 12/29/16 16:30 12/29/16 16:43 12/30/16 05:40 Lactic Acid Level 1.9mmol/L (0.4-2.0) Troponin T < 0.010ug/L (0.0-0.011) Lipase 18U/L (13-60) Hold Urine Received (Received) Urine Color Yellow (YELLOW) Urine Appearance Cloudy (CLEAR,HAZY) Urine pH 5.0 (5.0-8.0) Urine Specific [place] 1.025 (1.003-1.035) Urine Protein 100mg/dL (NEG,TRACE) Urine Glucose (UA) Negativemg/dL (NEGATIVE) Urine Ketones 15mg/dL (NEGATIVE) Urine Occult Blood Moderate (NEGATIVE) Urine Nitrite Positive (NEGATIVE) Urine Bilirubin Negative (NEGATIVE) Urine Urobilinogen Normalmg/dL (NORMAL) Urine Leukocyte Esterase Trace (NEGATIVE) Urine RBC 3-10/hpf (0-2) Urine WBC 6-10/hpf (0-5) Urine Epithelial Cells Moderate/hpf (NONE-MOD) Urine Crystals None seen (NONE SEEN) Urine Bacteria Many/hpf (NONE-FEW) Urine Hyaline Casts None/lpf (NONE) Urine Granular Casts None seen (NONE SEEN) Urine Waxy Casts None seen (NONE SEEN) Urine Red Blood Cell Casts None seen (NONE SEEN) Urine White Blood Cell Casts None seen (NONE SEEN) Urine Mucus None seen (None Seen) Urine Trichomonas None seen (NONE SEEN) Urine Yeast None (NONE SEEN) Urinalysis Comment None Urine Culture Reflexed Indicated White Blood Count 11.4th/mm3 (3.8-10.1) Red Blood Count 4.12mil/mm3 (3.90-5.20) Hemoglobin 12.4g/dL (12.0-15.6) Hematocrit 37.0% (35.0-46.0) Mean Corpuscular Volume 89.8fL (81-100) Mean Corpuscular Hemoglobin 30.1pg (27.0-35.0) Mean Corpuscular Hemoglobin Concent 33.5% (32.0-37.0) Red Cell Distribution Width 13.7% (12.3-15.4) Platelet Count 147bil/L (150-400) Neutrophils (%) (Auto) 83.2% (40-74) Lymphocytes (%) (Auto) 7.1% (14-46) Monocytes (%) (Auto) 9.0% (4-12) Eosinophils (%) (Auto) 0.3% (0-5) Basophils (%) (Auto) 0.1% (0-3) Total Bilirubin 0.4mg/dL (0.0-1.2) Aspartate Amino Transf (AST/SGOT) 18U/L (0-50) Alanine Aminotransferase (ALT/SGPT) 31U/L (0-32) Alkaline Phosphatase 51U/L (25-150) Total Protein 5.8g/dL (6.4-8.4) Albumin 3.2g/dL (3.4-5.0) Procalcitonin 1.27ng/mL (0.00-0.08) Test 12/31/16 05:15 12/31/16 09:40 Sodium Level 139mEq/L (134-144) Potassium Level 4.4mEq/L (3.5-5.2) Chloride Level 106mEq/L (97-108) Carbon Dioxide Level 16mmol/L (18-29) Blood Urea Nitrogen 10mg/dL (6-20) Creatinine 1.18mg/dL (0.57-1.00) Estimat Glomerular Filtration Rate 78mL/min (>59) Glucose Level 111mg/dL (60-99) Calcium Level 8.0mg/dL (8.5-10.1) Magnesium Level 1.5mg/dL (1.6-2.6) Microbiology Results Urine positive for Klebsiella sensitive to everything besides amoxicillin. Blood cultures normal, MRSA negative Discharge Medications Discharge Medications Calcium Carbonate (Calcium Antacid) 320 Mg Tab.chew 500 MG PO BID (Reported) Cephalexin (Cephalexin) 500 Mg Capsule 500 MG PO QID Prescribed by: FELIZ LOGAN MD Cholecalciferol (Vitamin D3) (Vitamin D3) 2,000 Unit Capsule 1,000 UNIT PO DAILY (Reported) Mycophenolate DR (Myfortic) 360 Mg Tablet 360 MG PO BID (Reported) Prednisone (PredniSONE) 5 Mg Tab 5 MG PO DAILY (Reported) Tacrolimus (Tacrolimus) 1 Mg Capsule 1.5 MG PO QPM (Reported) Tacrolimus (Tacrolimus) 1 Mg Capsule 2 MG PO DAILY (Reported) As needed Hydrocodone-Acetaminophen 5-300 mg (Hydrocodone-Acetaminophen 5-300 mg) 1 Each Tablet 1 TABLET PO Q4H PRN PRN For Pain Prescribed by: MOUSTAPHA SANDERS, DO Miscellaneous Medications Vits #90/Iron Fum/FA ( Formula Tablet) 1 Each Tablet 1 EACH PO (Reported) Followup Plan Disposition: To home Follow-up plan See primary care provider/vocational ed instructor within the next week Discharge Diet: No restrictions Discharge Activity: No restrictions Patient Instructions Finish 10 days of cephalexin/Keflex see your primary vocational ed instructor next week. Follow-up Provider: Delano Machuca MD Follow-up with PCP in: Other (before 01/06) Follow-up with Mid-level in: 4 weeks Time spent Greater than 30 minutes Attending Statement Patient going with a 10 day course of cephalexin, tacrolimus level still pending. Patient should get basic metabolic panel and magnesium before follow- up visit to monitor RACHANA and hypomagnesemia. copies to: Delano Machuca MD, Andris E MD Dec 31, 2016 13:09
--- NOTE | 2016-12-31 13:10 | PCM.PNNEPH ---
Subjective Date of Service Dec 31, 2016 Subjective Afebrile, doing better,no chills. mild sore throat. no cough. UC/cx Klebsiella. Exam Vital Signs Vital Sign - Last Date Time Temp Pulse Resp B/P Pulse Ox O2 Delivery O2 Flow Rate FiO2 12/31/16 05:07 37.0 92 18 107/68 97 Room Air Intake and Output 12/30/16 12/30/16 12/31/16 Cumulative From/Thru 15:00 23:00 07:00 12/29/16 12:19 - 12/31/16 05:59 Intake Total 400 ml 2330 ml 2626 ml 7996 ml Output Total 150 ml 350 ml 1200 ml 2125 ml Balance 250 ml 1980 ml 1426 ml 5871 ml Intake Oral 400 ml 800 ml 1200 ml IV Total 1580 ml 1826 ml 6046 ml TPN/PPN 750 ml 750 ml Output Urine Total 150 ml 350 ml 1200 ml 2125 ml # Voids 4 4 # Bowel Movements 0 Exam General: Alert, Oriented X3, Cooperative, No Acute Distress Head: Normal Eyes: PERRLA, EOMI, Scleral Anicteric Mouth: Mucous Membr Moist/[place] Chest & Lungs: Clear to auscultation & percussion, Auscultation, Percussion, No adventitious breath sounds Cardiovascular: Exam Unremarkable, Regular Rate/Rhythm, Normal S1, Normal S2, No Murmurs/Rubs/Gallops Abdomen: Non-tender, Non-distended, No rebound tenderness Genitourinary: No costophrenic angle tenderness or suprapubic pain Extremities: No cyanosis/clubbing/edma bilat Neurological: Grossly Neurologically Intact, Cranial Nerves 2-12 Intact, Normal Speech Lab and Diagnostics Result Diagram: 12/30/16 0540 12/31/16 0940 Plan Impression 1. RACHANA in the setting of kidney transplant. 2. Sepsis secondary to acute pyelonephritis. U/cx Klebsiella. 3. Kidney transplant status. Plan: Check CMV PCR, viral res panel. Switch to PO abx x 10 days. Follow up with her primary local telephone operator. Return to hospital if starts to have F/C/N/V/CP/SOB. Continue immunosuppressive meds. Barb Amanda MD Dec 31, 2016 13:10
--- NOTE | 2016-12-31 13:37 | NUR ---
Social Work-discharge: Data:EMR Reviewed. Pt is on day 2 of hospitalization for sepsis per H&P. Pt is medically stable for discharge. Pt resides at home with family where she remains independent with ADLS. pt to discharge on oral abx. Pt confirms no discharge needs. No discharge needs identified. All updated and agreeable to plan. Assessment:Pt who is independent at baseline. Plan:Pt to discharge home today via POV. No discharge needs identified. All updated and agreeable to plan. FEDERICO Wahl
--- NOTE | 2016-12-31 14:25 | NUR ---
Discharge Patient discharge to home with all belongings at 1350. Explained to patient new medication (cephalexin), when next medications are due and discharge instructions. Patient verbalized understanding. Dc'd IV intact. vitals stable. Patient left floor on her own two feet accompanied by family members with no signs of distress.
[2017-01-01] MEDS ORDERED: Vancomycin Serum Trough XX ONE (18:00)
== END 2016-12-31 13:50 | disposition home or self-care (01) | DRG 872 ==
LOC: SED 12:14 → MPC 18:01
PROVIDERS: ADMIT Hospitalist; ATTEND Hospitalist
DX: A41.9 Sepsis, unspecified organism (principal); N12 Tubulo-interstitial nephritis, not specified as acute or chronic; N17.9 Acute kidney failure, unspecified; Z94.0 Kidney transplant status; N39.0 Urinary tract infection, site not specified; D84.9 Immunodeficiency, unspecified; B96.20 Unspecified Escherichia coli [E. coli] as the cause of diseases classified elsewhere; Z79.52 Long term (current) use of systemic steroids; E86.0 Dehydration